=== PATIENT | female | born 1990 ===

== ENCOUNTER 2020-02-27 13:00 | Outpatient (CLI) | payer OTHER ==
[~2020-02-27 13:00] MED LIST: ULTRACET PO; VASOTEC
== END 2020-02-27 13:07 | disposition home or self-care (01) ==
LOC: RAD 13:00
PROVIDERS: ATTEND Orthopaedic Surgery
DX: M25.511 Pain in right shoulder (principal)

== ENCOUNTER 2022-08-09 09:24 | Outpatient (CLI) | payer OTHER | END 2022-08-09 09:25 | disposition home or self-care (01) | LOC: LAB 09:24 | PROVIDERS: ATTEND Internal Medicine | DX: D64.9 Anemia, unspecified (principal); E03.9 Hypothyroidism, unspecified; N39.0 Urinary tract infection, site not specified; E11.69 Type 2 diabetes mellitus with other specified complication; K92.1 Melena; E78.49 Other hyperlipidemia; E55.9 Vitamin D deficiency, unspecified; I10 Essential (primary) hypertension; E66.9 Obesity, unspecified; F17.218 Nicotine dependence, cigarettes, with other nicotine-induced disorders; F17.219 Nicotine dependence, cigarettes, with unspecified nicotine-induced disorders; Z80.3 Family history of malignant neoplasm of breast ==

== ENCOUNTER 2022-08-16 07:33 | Outpatient (CLI) | payer OTHER | END 2022-08-16 07:50 | disposition home or self-care (01) | LOC: RAD 07:33 | PROVIDERS: ATTEND Internal Medicine | DX: E66.9 Obesity, unspecified (principal); I10 Essential (primary) hypertension; F17.218 Nicotine dependence, cigarettes, with other nicotine-induced disorders; F17.219 Nicotine dependence, cigarettes, with unspecified nicotine-induced disorders; Z80.3 Family history of malignant neoplasm of breast; D33.2 Benign neoplasm of brain, unspecified | CPT/HCPCS: 70553 ==